=== PATIENT | female | born 1990 | race Caucasian/White ===

== ENCOUNTER 2019-04-26 00:06 | Inpatient (IN) ==
[2019-04-26] MEDS ORDERED: RINGER'S SOLUTION,LACTATED 1,000 ML IV ONE (00:28)
[2019-04-26] MEDS ORDERED: ONDANSETRON 4 MG TAB.RAPDIS PO PRN (00:28)
[2019-04-26] MEDS ORDERED: OXYTOCIN/DEXTROSE 5%-WATER 30 UNITS/500 ML BAG IV ONE ×2 (00:28→12:41)
[2019-04-26 01:15] LABS: Cocaine Ur Negative (NEGATIVE); Urine Barbiturate Negative (NEGATIVE); Urine Benzodiazepines Negative (NEGATIVE); Urine Opiates Negative (NEGATIVE); Urine PCP Negative (NEGATIVE); Urine THC Negative (NEGATIVE)
[2019-04-26] MEDS ORDERED: BUPIVACAINE HCL/0.9 % NACL/PF 250 ML EP PRN (01:40)
[2019-04-26] MEDS ORDERED: NALOXONE HCL 1 MG/1 ML SYRG IV PRN (01:40)
[2019-04-26] MEDS ORDERED: ONDANSETRON HCL/PF 2 MG/ML VIAL IV PRN (01:40)
[2019-04-26] MEDS: DEXTROSE 5%-LACTATED RINGERS 1,000 ML IV PRN ×2 (01:44→09:50)
[2019-04-26] MEDS ORDERED: fentaNYL CITRATE/PF 50 MCG/ML AMPUL IT SCH (01:45)
--- NOTE | 2019-04-26 02:18 | ANES ---
Anesthesia Pre Procedure Eval Vitals/Labs: Last Vital Signs Temp 36.2 C 04/26/19 00:59 Pulse 111 H 04/26/19 00:59 Resp 20 04/26/19 00:59 BP 110/76 04/26/19 00:59 Pulse Ox 97 04/26/19 00:59 HOME MEDICATIONS vitamin,calcium,plmloeuc-hejg-lenre acid tablet 1 tab PO DAILY 10/19/18 [Last Taken 04/25/19 08:00] Allergies/Adverse Reactions: Allergies Allergy/AdvReac Type Severity Reaction Status Date / Time No Known Allergies Allergy Verified 04/26/19 00:26 - Planned Procedure Planned Procedure: ELECTIVE INDUCTION 39 WEEKS Medication List Reviewed:: Yes Allergies Verified: Yes Medical History (Updated 10/19/18 @ 19:54 by Jermaine Montoya DO) Bacterial vaginitis (Acute) Anxiety Migraine Abnormal Pap smear of cervix 2010 Anemia w/pregnancies Frequent urinary tract infections Pyelonephritis Onset Date: ~2015 Septic Surgical History (Updated 10/19/18 @ 13:29 by Sara Uribe RN) H/O colposcopy with cervical biopsy Normal per pt H/O umbilical hernia repair Onset Date: ~2012 Hx of tonsillectomy Onset Date: ~2009 Family History (Updated 10/19/18 @ 13:31 by Sara Uribe RN) Mother Hypertension Father Myocardial infarction, Onset Age: 55 Grandmother Myocardial infarction - Family Anesthesia History Family History:: no untoward family reactions to anesthesia, no familial bleeding tendencies, no family history of clotting disorders, no family history of premature - Airway/Neck/Teeth Within Normal Limits:: Yes Teeth Condition: intact Neck Exam: full range of motion Mallampatti Score: 2 Thyromental (T-M) distance: > 6 cm Mandibulo Hyoid distance: > 3 cm - Respiratory Respiratory Physical: lungs clear Smoking Status: Never smoker Sleep Apnea currently treated: No Sleep Apnea by current assessment: No - Cardiovascular Tolerate Activity: Fair Heart Sounds: S1 & S2, Regular - Anesthesia Assessment and Plan ASA Class: PS, II, E Anesthesia Type Plan: Epidural - CSE for labor analgesia
[2019-04-26] MEDS ORDERED: LIDOCAINE HCL/EPINEPHRINE 20 ML VIAL ONE (02:25)
--- NOTE | 2019-04-26 02:42 | ANES ---
Post Anesthesia Discharge - Transfer of Care Transfer of Care handoff given to nurse: Yes - Discharge from PACU Discharge from PACU when meets criteria: Yes - Comfortable post CSE
--- NOTE | 2019-04-26 02:45 | ANES ---
Anesthesia Procedure Note Procedure Note: ANESTHESIA PROCEDURE NOTE Date of Procedure: 04/26/2019 Time of procedure: 2:20 AM. Performed by: EUGENIA Rivas CRNA, MSN [employer] Architect:Sandie Oswald. Preprocedure diagnosis: Active labor, labor pain. Post procedure diagnosis: Same. Procedure:Epidural for labor analgesia L3-4. Indications: Labor pain. Findings: See below. Details of the procedure: The patient was placed on the side of the bed in sitting positionand prepped with DuraPrep then draped in a sterile fashion. Lidocaine 1% was infiltrated to the skin and subcutaneous tissues at the level of the L3-4 interspace. An 18-gauge Touhy needle was used to approach the epidural space with loss of resistance technique. Once loss of resistance was achieved a 27-gauge spinal needle was passed through the epidural needle and CSF was contacted. After CSF returned, 20 mcg of fentanyl was injected in the spinal needle was removed the epidural catheter was then threaded approximately 4 cm in the epidural needle was removed. The catheter was taped in place and after careful aspiration 3 mL of 1.5% lidocaine with 1-200,000 epinephrine was injected without change in maternal heart rate or sensorium. . EBL: Minimal. Fluids: N/A. Specimen: N/A. Post procedure condition: The patient tolerated the procedure well with good relief. No complications were noted. Thank you for this consultation. Uziel Burgos CRNA, ARNP, MSN
--- NOTE | 2019-04-26 02:49 | ANES ---
Post Anesthesia Assessment - Vital Signs Vitals: Last Vital Signs Temp 36.2 C 04/26/19 00:59 Pulse 92 04/26/19 02:37 Resp 18 04/26/19 02:37 BP 106/74 04/26/19 02:37 Pulse Ox 98 04/26/19 02:37 Airway Patency: Normal - Mental Status Level Of Consciousness: Awake, Alert, Appropriate, Follows Commands - Pain Level Pain Score: 0 - N/V Assessment Nausea/Vomiting Presence: None Dehydration:: No
[2019-04-26] MEDS ORDERED: OXYTOCIN 10 UNITS/ML SYRG IM STA (12:30)
[2019-04-26] MEDS ORDERED: BENZOCAINE/MENTHOL 81 SPRAY CAN TP PRN (12:41)
[2019-04-26] MEDS ORDERED: BISACODYL 10 MG SUPP.RECT RC PRN (12:41)
[2019-04-26] MEDS ORDERED: GLYCERIN/WITCH HAZEL LEAF 40 APPL BOX TP PRN (12:41)
[2019-04-26] MEDS ORDERED: SENNOSIDES 8.6 MG TABLET PO PRN (12:41)
[2019-04-26] MEDS ORDERED: HYDROCORTISONE 30 APPL TUBE TP PRN (12:41)
--- NOTE | 2019-04-26 12:42 | HP ---
Chief Complaint - Chief Complaint Date of Service: 04/26/19 Time of Service: 12:42 Chief Complaint: social induction of labor History of Present Illness: 28 yo at 39 0/7 weeks presents to L&D for induction of labor due to social reasons (having someone to watch her other 2 children). This complicated by anemia, B.V., anxiety, and chlamydia infection in 1st trimester (tx'd with MILKA neg 12/29/18). Rh positive Rubella immune GBS negative Medical History (Updated 04/26/19 @ 12:42 by Jermaine Montoya DO) Bacterial vaginitis (Acute) Anxiety Migraine Abnormal Pap smear of cervix 2010 Anemia w/pregnancies Frequent urinary tract infections Pyelonephritis Onset Date: ~2015 Septic Surgical History: Surgical History (Updated 04/26/19 @ 12:42 by Jermaine Montoya DO) H/O colposcopy with cervical biopsy Normal per pt H/O umbilical hernia repair Onset Date: ~2012 Hx of tonsillectomy Onset Date: ~2009 Family History: Family History (Updated 10/19/18 @ 13:31 by Sara Uribe RN) Mother Hypertension Father Myocardial infarction, Onset Age: 55 Grandmother Myocardial infarction Social History: (Last Reviewed 04/26/19 @ 12:49 by Jermaine Montoya DO) Social History: Marital status: Single household members: children current occupational status: student, employed current occupation: [employer] Highest education level completed: some college, no degree Service: No Tobacco: Smoking Status: Never smoker Alcohol: alcohol intake: current alcohol intake frequency: 0-2 drinks per day details: None since +UPT Substance Use: substance use type: does not use Dietary Habits: caffeine: Yes Type: coffee Exercise: Physical activity type: none Review Of Systems (GEN) - Review of Systems Generalized/Overall Review: Present: No Symptoms Reported EENTM: Present: No Symptoms Reported Respiratory: Present: No Symptoms Reported Cardiac: Present: No Symptoms Reported Abdominal: Present: No Symptoms Reported Genitourinary: Present: No Symptoms Reported Musculoskeletal: Present: No Symptoms Reported Neurological: Present: No Symptoms Reported Skin: Present: No Symptoms Reported Endocrine: Present: No Symptoms Reported Allergies/Adverse Reactions: Allergies Allergy/AdvReac Type Severity Reaction Status Date / Time No Known Allergies Allergy Verified 04/26/19 00:26 Home Medications: HOME MEDICATIONS vitamin,calcium,yvenpwwb-kmwq-xbhax acid tablet 1 tab PO DAILY 10/19/18 [Last Taken 04/25/19 08:00] Exam - Exam Vital Signs: Vital Signs - Last Taken Temp 36.6 C 04/26/19 12:30 Pulse 99 04/26/19 12:30 Resp 18 04/26/19 12:30 BP 113/57 04/26/19 12:30 Pulse Ox 100 04/26/19 12:30 Constitutional: Present: Alert, Oriented x3, Cooperative, No distress ENT Exam: Present: hearing grossly normal Breasts: Present: Exam deferred Respiratory: Present: lungs clear, no respiratory distress Cardiovascular/Chest: Present: regular rate, rhythm, no edema Abdomen: Present: soft, nontender, no rebound tenderness, other - gravid /Rectal: Present: Other - cervix 4-5/75/-1 Extremity: Present: no pedal edema, no calf tenderness Skin Exam: Present: normal color, warm/dry, no cyanosis Neurologic: Present: alert, normal mood/affect, oriented x 3 Appearance: Present: appropriate appearance, appropriate insight Eye contact: Present: cooperative, good eye contact Thoughts: Present: normal thought pattern Diagnostic Studies: Laboratory Results Negative (NEGATIVE) 04/26/19 00:28 Negative (NEGATIVE) 04/26/19 00:28 Ur Phencyclidine Scrn Negative (NEGATIVE) 04/26/19 00:28 Urine Amphetamine Negative (NEGATIVE) 04/26/19 00:28 U Benzodiazepines Scrn Negative (NEGATIVE) 04/26/19 00:28 Negative (NEGATIVE) 04/26/19 00:28 Negative (NEGATIVE) 04/26/19 00:28 NST reactive Assessment/Plan - Assessment/Plan (1) Elective induction of labor planned Problem: Acute
--- NOTE | 2019-04-26 12:44 | OR ---
Operative Report - Dictated Report Narrative: Spontaneous vaginal delivery of a vigorously crying viable male at 1222 on 04/26/2019 with Apgars 8 9, weighing 3686 g and SRIDEVI position. Cord clamping delayed approximately 1 minute Placenta delivered complete, intact, with three vessel cord Estimated blood loss: 100 mL Anesthesia: Epidural Lacerations: Minor abrasion of posterior fourchette - no repair needed 20 units of Pitocin given IM due to loss of IV at time of delivery. History for MU History for Definition: * The number of deliveries resulting in a live the patient experienced prior to current hospitalization * The previous delivery of live twins or any live multiple gestation is considered one live event. *If primagravida or nulliparous is documented select zero for the number of previous live births. Live Events: Live Events: 2
[2019-04-26] MEDS: IBUPROFEN 800 MG TABLET PO PRN (16:19)
[2019-04-26] MEDS: oxyCODONE HCL/ACETAMINOPHEN 1 TAB TABLET PO PRN ×2 (17:21→21:02)
[2019-04-26] MEDS: DOCUSATE SODIUM 100 MG CAPSULE PO SCH (20:09)
[2019-04-27] MEDS: oxyCODONE HCL/ACETAMINOPHEN 1 TAB TABLET PO PRN ×6 (01:04→22:51)
[2019-04-27] MEDS: IBUPROFEN 800 MG TABLET PO PRN ×3 (01:04→17:40)
--- NOTE | 2019-04-27 04:58 | PN ---
Subjective - Date and Time Seen Date: 04/27/19 Time: 04:57 Objective - Vitals Vitals: Last Vital Signs Temp 36.6 C 04/27/19 01:24 Pulse 72 04/27/19 01:24 Resp 16 04/27/19 01:24 BP 109/69 04/27/19 01:24 Pulse Ox 99 04/27/19 01:24 Patient complains of moderate cramping. Baby not wanting to nurse much Lochia moderate abdomen - soft, nontender Uterus -firm, at umbilicus - 1 no calf tenderness Impression: day #1 - s/p spontaneous vaginal delivery. Moderate to heavy lochia Plan: Continue routine care. Continue with Pitocin for the next several hours Cauti Physician Documentation - Urinary Catheter Management Urethral (Gomez) Date of Insertion: 04/26/19 Time of Insertion: 03:00 Assessment/Plan - Problems/Diagnosis (1) Elective induction of labor planned Problem: Acute
[2019-04-27] MEDS: DOCUSATE SODIUM 100 MG CAPSULE PO SCH ×2 (08:10→20:08)
[2019-04-27] MEDS: PRENATAL VITS96/IRON FUM/FOLIC 1 TAB TABLET PO SCH (08:10)
[2019-04-28] MEDS: PRENATAL VITS96/IRON FUM/FOLIC 1 TAB TABLET PO SCH ×2 (07:50→09:09)
[2019-04-28] MEDS: IBUPROFEN 800 MG TABLET PO PRN (07:50)
[2019-04-28] MEDS: DOCUSATE SODIUM 100 MG CAPSULE PO SCH ×2 (07:50→09:09)
[2019-04-28] MEDS: oxyCODONE HCL/ACETAMINOPHEN 1 TAB TABLET PO PRN (07:50)
[2019-04-28 08:44] VITALS: BP 112/74
--- NOTE | 2019-04-28 13:55 | PN ---
Subjective - Date and Time Seen Date: 04/28/19 Time: 13:55 - Seen earlier this am Objective - Vitals Vitals: Last Vital Signs Temp 36.5 C 04/28/19 08:00 Pulse 76 04/28/19 08:00 Resp 14 04/28/19 08:00 BP 112/74 04/28/19 08:00 Pulse Ox 98 04/28/19 08:00 Patient denies complaints. Lochia wnl abdomen - soft, nontender Uterus -firm, at umbilicus - 2 no calf tenderness Impression: day #2 - s/p spontaneous vaginal delivery. Plan: Routine discharge instructions Cauti Physician Documentation - Urinary Catheter Management Urethral (Gomez) Date of Insertion: 04/26/19 Time of Insertion: 03:00 Assessment/Plan - Problems/Diagnosis (1) Elective induction of labor planned Problem: Acute
== END 2019-04-28 13:35 | disposition home or self-care (01) | DRG 805 ==
LOC: OB 00:06
PROVIDERS: ADMIT Obstetrics & Gynecology; ATTEND Obstetrics & Gynecology
CPT/HCPCS: 59025; 80307; J2405